=== PATIENT | female | born 1995 | race Caucasian/White ===

== ENCOUNTER 2021-08-25 01:09 | Emergency (ER) | payer MEDICAID ==
[~2021-08-25] VITALS: Ht 162.6 cm; Wt 73.0 kg
[2021-08-25 01:16] VITALS: BP 122/44
== END 2021-08-25 01:48 | disposition home or self-care (01) ==
LOC: EDBD 01:15 → ER 01:15
DX: F10.129 Alcohol abuse with intoxication, unspecified (principal); F12.10 Cannabis abuse, uncomplicated; F17.290 Nicotine dependence, other tobacco product, uncomplicated; Y90.9 Presence of alcohol in blood, level not specified
CPT/HCPCS: 99283; 99406

== ENCOUNTER 2021-11-30 14:49 | Emergency (ER) | payer MEDICAID ==
[~2021-11-30] VITALS: Ht 165.1 cm; Wt 112.0 kg
[2021-11-30] MEDS ORDERED: KETOROLAC 15MG/ML VIAL IV ONE (19:45)
[2021-11-30 21:09] LABS: BASOPHILS % 0.4 % (0.0-2.0); EOSINOPHILS % 0.9 % (0.0-5.0); HEMATOCRIT. 37.4 % (36.0-48.0); HEMOGLOBIN. 13.3 g/dL (12.0-16.0); LYMPHOCYTES % 20.6 % (20.0-50.0); MEAN CORPUSCULAR HEMOGLOBIN 32.1 pg (28.0-32.0); MEAN CORPUSCULAR VOLUME 90.4 fL (81.0-99.0); MEAN PLATELET VOLUME 8.5 fl (7.4-10.4); MONOCYTES % 10.6 % (2.0-8.0); NEUTROPHILS % 67.5 % (40.0-76.0); PLATELET 198 x1000/uL (130-400); RED BLOOD CELL COUNT 4.14 mill/uL (4.2-5.4); RED CELL DISTRIBUTION WIDTH 13.2 % (11.6-14.6)
[2021-11-30 21:19] LABS: CHLORIDE 104 mEq/L (98-107)
[2021-11-30 21:45] LABS: B-HCG QUANTITATIVE 1192 mIU/mL (<3)
[2021-11-30 22:20] LABS: CLARITY URINE CLOUDY (CLEAR); COLOR URINE DARK YELLOW (YELLOW); KETONES URINE TRACE (NEGATIVE); LEUKOCYTE ESTERASE URINE 2+ (NEGATIVE); NITRITE URINE POSITIVE (NEGATIVE); OCCULT BLOOD URINE 1+ (NEGATIVE); PH URINE 5.5 (4.5-8.0); PROTEIN URINE 2+ (NEGATIVE); SPECIFIC GRAVITY URINE 1.028 (1.005-1.030)
[2021-11-30] MEDS ORDERED: CEFTRIAXONE 1 G PREMIX 50 ML IV NR (23:30)
[2021-12-01] MEDS ORDERED: DOXYCYCLINE HYCLATE 100 MG/VIAL IV ONE
[2021-12-01] MEDS ORDERED: CEFTRIAXONE 1 G PREMIX 50 ML IV ONE
[2021-12-01] MEDS ORDERED: DOXY100C5 MT (00:04)
[2021-12-01] MEDS ORDERED: METR-167 MT (00:04)
[2021-12-01] MEDS ORDERED: TOPUD MT (00:04)
[2021-12-01] MEDS ORDERED: DOXYCYCLINE 100MG in DEXTROSE 5% WATER 100ML IV NR (00:14)
[2021-12-01 01:30] VITALS: BP 120/72
== END 2021-12-01 01:55 | disposition home or self-care (01) ==
LOC: ER 14:49
DX: N71.9 Inflammatory disease of uterus, unspecified (principal); N39.0 Urinary tract infection, site not specified; F12.10 Cannabis abuse, uncomplicated; Z79.899 Other long term (current) drug therapy
CPT/HCPCS: 36415; 76830; 76856; 80053; 81003; 81025; 84702; 85025; 87086; 93005; 96365; 96367; 96375; 99285; J0696; J1885; J3490; J7060

== ENCOUNTER 2022-01-18 05:16 | Emergency (ER) | payer MEDICAID, OTHER ==
[~2022-01-18] VITALS: Ht 177.8 cm; Wt 99.0 kg
[~2022-01-18 05:16] MED LIST: DOXY100C5 MT; METR-167 MT; TOPUD MT
[2022-01-18] MEDS ORDERED: ACETAMINOPHEN 325MG TABLET PO STA (05:19)
[2022-01-18 05:20] VITALS: BP 144/80
[2022-01-18 05:33] LABS: BASOPHILS % 0.7 % (0.0-2.0); EOSINOPHILS % 7.1 % (0.0-5.0); HEMATOCRIT. 38.5 % (36.0-48.0); HEMOGLOBIN. 12.9 g/dL (12.0-16.0); LYMPHOCYTES % 33.7 % (20.0-50.0); MEAN CORPUSCULAR HEMOGLOBIN 30.9 pg (28.0-32.0); MEAN CORPUSCULAR VOLUME 92.1 fL (81.0-99.0); MEAN PLATELET VOLUME 8.4 fl (7.4-10.4); MONOCYTES % 6.3 % (2.0-8.0); NEUTROPHILS % 52.2 % (40.0-76.0); PLATELET 245 x1000/uL (130-400); RED BLOOD CELL COUNT 4.18 mill/uL (4.2-5.4); RED CELL DISTRIBUTION WIDTH 12.8 % (11.6-14.6)
[2022-01-18 05:39] LABS: CHLORIDE 110 mEq/L (98-107)
== END 2022-01-18 08:00 | disposition left against medical advice (07) ==
LOC: ER 05:16
DX: R07.9 Chest pain, unspecified (principal); Z88.5 Allergy status to narcotic agent
CPT/HCPCS: 36415; 71045; 80053; 83880; 84484; 85025; 99284

== ENCOUNTER 2022-07-26 13:52 | Emergency (ER) | payer MEDICAID, OTHER ==
[~2022-07-26] VITALS: Ht 165.1 cm; Wt 116.0 kg
[2022-07-26 14:00] VITALS: BP 124/79
[2022-07-26] MEDS ORDERED: NAPROXEN 250MG TABLET PO ONE (15:00)
[2022-07-26 15:34] LABS: BASOPHILS % 0.5 % (0.0-2.0); EOSINOPHILS % 5.5 % (0.0-5.0); HEMATOCRIT. 38.8 % (36.0-48.0); HEMOGLOBIN. 13.3 g/dL (12.0-16.0); LYMPHOCYTES % 28.5 % (20.0-50.0); MEAN CORPUSCULAR HEMOGLOBIN 31.3 pg (28.0-32.0); MEAN CORPUSCULAR VOLUME 91.2 fL (81.0-99.0); MEAN PLATELET VOLUME 8.3 fl (7.4-10.4); MONOCYTES % 7.6 % (2.0-8.0); NEUTROPHILS % 57.9 % (40.0-76.0); PLATELET 265 x1000/uL (130-400); RED BLOOD CELL COUNT 4.26 mill/uL (4.2-5.4); RED CELL DISTRIBUTION WIDTH 13.2 % (11.6-14.6)
[2022-07-26 15:41] LABS: CHLORIDE 110 mEq/L (98-107)
[2022-07-26] MEDS ORDERED: NAPROXEN 500MG TABLET PO NR (16:00)
[2022-07-26] MEDS ORDERED: CYCL10TA21 MT (16:05)
[2022-07-26] MEDS ORDERED: NAPR-1176 MT (16:05)
== END 2022-07-26 16:27 | disposition home or self-care (01) ==
LOC: ER 13:52
DX: R07.9 Chest pain, unspecified (principal); M25.511 Pain in right shoulder; Z88.6 Allergy status to analgesic agent
CPT/HCPCS: 36415; 71045; 80053; 81025; 84484; 85025; 93005; 99285

== ENCOUNTER 2022-09-03 04:12 | Emergency (ER) | payer MEDICAID, OTHER ==
[~2022-09-03] VITALS: Ht 165.1 cm; Wt 77.0 kg
[~2022-09-03 04:12] MED LIST changes: +CYCL10TA21 MT; +NAPR-1176 MT
[2022-09-03 04:14] VITALS: BP 131/84
[2022-09-03] MEDS ORDERED: LIDOCAINE HCL/PF 1% 10 MG/ML 5ML VIAL INFIL ONE (05:15)
[2022-09-03] MEDS ORDERED: ACETAMINOPHEN 325MG TABLET PO ONE (05:30)
[2022-09-03] MEDS ORDERED: IBUP-2028 PO (06:28)
== END 2022-09-03 06:42 | disposition home or self-care (01) ==
LOC: ER 04:23
DX: S81.811A Laceration without foreign body, right lower leg, initial encounter (principal); S80.11XA Contusion of right lower leg, initial encounter; Z88.5 Allergy status to narcotic agent; W26.8XXA Contact with other sharp object(s), not elsewhere classified, initial encounter; Y93.89 Activity, other specified; Y92.018 Other place in single-family (private) house as the place of occurrence of the external cause
CPT/HCPCS: 12001; 73590; 81025; 99283; J3490

== ENCOUNTER 2022-12-10 09:28 | Emergency (ER) | payer MEDICAID ==
[~2022-12-10] VITALS: Ht 175.3 cm; Wt 102.0 kg
[~2022-12-10 09:28] MED LIST changes: +IBUP-2028 PO
[2022-12-10 09:40] VITALS: BP 118/68
[2022-12-10] MEDS ORDERED: SODIUM CHLORIDE 0.9% 1,000 ML IV ONE (10:45)
[2022-12-10 11:23] LABS: CHLORIDE 110 mEq/L (98-107)
[2022-12-10 11:27] LABS: CLARITY URINE CLOUDY (CLEAR); COLOR URINE YELLOW (YELLOW); KETONES URINE TRACE (NEGATIVE); LEUKOCYTE ESTERASE URINE 1+ (NEGATIVE); NITRITE URINE NEGATIVE (NEGATIVE); OCCULT BLOOD URINE NEGATIVE (NEGATIVE); PH URINE 5.5 (4.5-8.0); PROTEIN URINE TRACE (NEGATIVE); SPECIFIC GRAVITY URINE 1.018 (1.005-1.030); UROBILINOGEN URINE 0.2 E.U./dL (0.2-1.0)
== END 2022-12-10 12:38 | disposition home or self-care (01) ==
LOC: ER 09:28
DX: R19.7 Diarrhea, unspecified (principal); R42 Dizziness and giddiness; F12.10 Cannabis abuse, uncomplicated; Z88.5 Allergy status to narcotic agent
CPT/HCPCS: 36415; 80048; 81003; 81025; 83735; 96360; 99283; J7030

== ENCOUNTER 2023-10-07 22:39 | Emergency (ER) | payer MEDICAID, OTHER ==
[~2023-10-07] VITALS: Ht 165.1 cm; Wt 117.0 kg
[2023-10-07] MEDS ORDERED: ACYCLOVIR 400 MG TABLET PO ONE (22:45)
[2023-10-07] MEDS ORDERED: GABAPENTIN 300MG CAPSULE PO ONE (22:45)
[2023-10-07] MEDS ORDERED: PREDNISONE 20MG TABLET PO ONE (22:45)
[2023-10-07 22:56] VITALS: BP 138/93; O2SAT 98
[2023-10-07] MEDS ORDERED: ACYC200C31 MT (23:02)
[2023-10-07] MEDS ORDERED: HYPR15DR23 EACH EAR (23:02)
[2023-10-07] MEDS ORDERED: P50 MT (23:02)
[2023-10-07 23:46] VITALS: PULSE 73; RESP 16; TEMP 99.1
== END 2023-10-07 23:54 | disposition home or self-care (01) ==
LOC: ER 22:39
DX: G51.0 Bell's palsy (principal); F12.90 Cannabis use, unspecified, uncomplicated; Z88.5 Allergy status to narcotic agent
CPT/HCPCS: 99284; 81025; J7512